=== PATIENT | male | born 1935 | race Caucasian/White ===

== ENCOUNTER 2023-02-10 07:48 | Emergency (ER) | payer OTHER ==
[~2023-02-10] VITALS: Ht 167.6 cm; Wt 79.4 kg
[2023-02-10 07:51] VITALS: BP_SYST 160; PULSE 91; RESP 19; TEMP 98; O2SAT 96
[2023-02-10 08:25] LABS: BASOPHILS % (AUTO) 0.4 % (0.0-2.0); EOSINOPHILS # (AUTO) 0.1 K/uL (0.0-0.4); EOSINOPHILS % (AUTO) 1.3 % (0.0-4.0); HEMATOCRIT 42.8 % (36-54); HEMOGLOBIN 14.7 g/dL (14.0-18.0); LYMPHOCYTES % (AUTO) 12.1 % (20.5-51.5); MEAN CORPUSCULAR HEMOGLOBIN 35 pg (27-31); MEAN CORPUSCULAR HGB CONC 34 % (32-36); MEAN CORPUSCULAR VOLUME 101 fL (79.0-98.0); MONOCYTES # (AUTO) 0.8 K/uL (0.0-1.0); MONOCYTES % (AUTO) 10.5 % (1.7-9.3); NEUTROPHILS % (AUTO) 75.7 % (40.0-70.0); PLATELET COUNT (AUTO) 168 K/uL (130-430); RED BLOOD CELL COUNT(AUTO) 4.25 MIL/uL (4.2-6.2); RED CELL DISTRIBUTION WIDTH 12.7 % (9.0-15.0); WHITE BLOOD COUNT (AUTO) 7.9 K/uL (4.8-10.8)
--- NOTE | 2023-02-10 08:30 | NUR ---
Patient to ER bed 2 for evaluation. Side rails up. Report given to TAHIR Bonilla.
[2023-02-10 08:36] LABS: ANION GAP 8 (5-15); CALCIUM 8.7 mg/dL (8.4-11.0); CHLORIDE 102 mmol/L (98-107); GLUCOSE 100 mg/dL (74-106); UREA NITROGEN, BLOOD 27 mg/dL (8-21)
[2023-02-10 08:43] LABS: ALANINE AMINOTRANSFERASE 43 U/L (12-78); ALBUMIN 3.7 g/dL (3.4-4.8); ASPARTATE AMINOTRANSFERASE 35 U/L (10-37); TOTAL BILIRUBIN 0.6 mg/dL (0.0-1.0)
--- NOTE | 2023-02-10 09:30 | NUR ---
Patient states he is breathing better. Patient has been seen by MD and labs, ECG and Xrays ordered and completed.
[2023-02-10] MEDS ORDERED: ALBMDI INH (10:14)
[2023-02-10 11:10] VITALS: BP_SYST 143; PULSE 100; RESP 20; TEMP 97.5; O2SAT 98
--- NOTE | 2023-02-10 11:15 | NUR ---
Patient given written and verbal discharge instructions and verbalizes understanding. ER MD discussed with patient the results and treatment provided. Patient in stable condition. ID arm band removed. Rx of albuterol inhaler given. Patient educated on pain management and to follow up with PMD. Pain Scale 0/10. Opportunity for questions provided and answered. Medication side effect fact sheet provided.
== END 2023-02-10 11:15 | disposition home or self-care (01) ==
LOC: SED 07:48
DX: J98.01 Acute bronchospasm (principal); R07.2 Precordial pain; Z88.1 Allergy status to other antibiotic agents; Z79.899 Other long term (current) drug therapy
CPT/HCPCS: 36415; 71045; 80053; 84484; 85025; 93005; 99285